=== PATIENT | male | born 1985 | race Two or more races ===

== ENCOUNTER 2018-05-03 16:14 | Emergency (ER) | payer MEDICAID ==
[~2018-05-03] VITALS: Ht 177.8 cm; Wt 254.0 kg
[2018-05-03 18:35] LABS: Basophils # (auto) 0.1 uL; Eosinophils # (auto) 0.1 uL; Eosinophils % (auto) 0.9 % (0.0-7.0); Lymphocytes # (auto) 2.6 uL; Lymphocytes % (auto) 19.9 % (10.0-50.0); Mean Corpuscular Hemoglobin 27.7 pg (28.0-32.0); Mean Corpuscular Hgb Conc. 32.4 g/dL (32.0-36.0); Mean Corpuscular Volume 85.6 fL (80.0-100.0); Monocytes # (auto) 0.8 uL; Monocytes % (auto) 6.5 % (0.0-12.0); Neutrophils # (auto) 9.3 uL; Neutrophils % (auto) 71.7 % (37.0-80.0); Platelet Count (auto) 299 10^3/uL (140-450); Red Blood Cells 4.68 10^6/uL (4.5-5.90); Red Cell Distribution Width 14.7 % (11.8-14.3)
[2018-05-03 18:42] LABS: Alanine Aminotransferase 35 U/L (16-61); Albumin 2.6 g/dL (3.4-5.0); Anion Gap 9 (5-15); Aspartate Aminotransferase 13 U/L (15-37); BUN/Creatinine Ratio 19.7; Blood Urea Nitrogen 25 mg/dL (7-18); Calcium 7.8 mg/dL (8.5-10.1); Carbon Dioxide 21 mmol/L (21-32); Chloride 105 mmol/L (98-107); GFR African American 85 mL/min; GFR Non-African American 70 mL/min; Glucose 260 mg/dL (74-106); Potassium 4.4 mmol/L (3.5-5.1); Sodium 135 mmol/L (136-145)
[2018-05-03 18:44] LABS: Alkaline Phosphatase 94 U/L (45-117); Bilirubin, Total < 0.1 mg/dL (0.2-1.0)
[2018-05-03 18:52] LABS: Urine Bacteria NONE SEEN /hpf (None Seen); Urine Blood Negative /uL (Negative); Urine Specific Gravity 1.016 (1.001-1.035); Urine WBC 2 /hpf (0 - 3)
[2018-05-03 19:11] LABS: Alcohol, Urine < 3.0 mg/dL (0-5); Amphetamine Screen, Urine NEGATIVE (NEGATIVE); Barbiturate Scree,Urine NEGATIVE (NEGATIVE); Benzodiazephine Screen, Urine NEGATIVE (NEGATIVE); Cannabinoid Screen, Urine NEGATIVE (NEGATIVE); Cocaine Screen, Urine NEGATIVE (NEGATIVE); Opiate Scree,Urine NEGATIVE (NEGATIVE); Phencyclidine Screen, Urine NEGATIVE (NEGATIVE)
[2018-05-03 20:03] VITALS: BP 159/90
== END 2018-05-03 20:18 | disposition home or self-care (01) ==
LOC: ER 16:14 → EDBD 16:14 → ER 20:18
DX: I51.7 Cardiomegaly (principal); R42 Dizziness and giddiness; E11.9 Type 2 diabetes mellitus without complications; K21.9 Gastro-esophageal reflux disease without esophagitis
CPT/HCPCS: 36415; 71045; 80053; 80307; 81001; 83880; 84484; 85025; 93005

== ENCOUNTER 2019-05-07 02:19 | Emergency (ER) | payer MEDICAID ==
[~2019-05-07] VITALS: Ht 177.8 cm; Wt 263.1 kg
[2019-05-07 03:28] LABS: Basophils # (auto) 0.1 uL; Eosinophils # (auto) 0.2 uL; Hematocrit 41.4 % (41.0-53.0); Hemoglobin 13.9 g/dL (13.5-17.5); Lymphocytes # (auto) 3.4 uL; Lymphocytes % (auto) 31.3 % (10.0-50.0); Mean Corpuscular Hemoglobin 27.7 pg (28.0-32.0); Mean Corpuscular Hgb Conc. 33.7 g/dL (32.0-36.0); Mean Corpuscular Volume 82.4 fL (80.0-100.0); Monocytes # (auto) 0.9 uL; Monocytes % (auto) 8.4 % (0.0-12.0); Neutrophils # (auto) 6.3 uL; Neutrophils % (auto) 57.3 % (37.0-80.0); Platelet Count (auto) 343 10^3/uL (140-450); Red Blood Cells 5.03 10^6/uL (4.5-5.90); Red Cell Distribution Width 15.4 % (11.8-14.3)
[2019-05-07 03:48] LABS: Calcium 8.7 mg/dL (8.5-10.1); Chloride 101 mmol/L (98-107); Potassium 3.9 mmol/L (3.5-5.1); Salicylate < 1.7 mg/dL (2.8-20.0); Sodium 134 mmol/L (136-145)
[2019-05-07 03:50] LABS: Acetaminophen < 2.0 ug/mL (10-30)
[2019-05-07 03:52] LABS: Alanine Aminotransferase 44 U/L (16-61); Albumin 2.7 g/dL (3.4-5.0); Anion Gap 11 (5-15); Aspartate Aminotransferase 19 U/L (15-37); BUN/Creatinine Ratio 18.2; Blood Urea Nitrogen 20 mg/dL (7-18); Carbon Dioxide 22 mmol/L (21-32); GFR African American 100 mL/min; GFR Non-African American 82 mL/min; Glucose 274 mg/dL (74-106)
[2019-05-07 03:57] LABS: Alkaline Phosphatase 107 U/L (45-117); Bilirubin, Total 0.3 mg/dL (0.2-1.0); Total Protein 7.9 g/dL (6.4-8.2)
[2019-05-07 05:44] VITALS: BP 149/94
== END 2019-05-07 06:12 | disposition home or self-care (01) ==
LOC: EDBD 02:19 → ER 02:22
DX: F44.9 Dissociative and conversion disorder, unspecified (principal); R07.89 Other chest pain; R00.2 Palpitations; E11.9 Type 2 diabetes mellitus without complications; K21.9 Gastro-esophageal reflux disease without esophagitis; I10 Essential (primary) hypertension
CPT/HCPCS: 36415; 71045; 80053; 80320; 80329; 82962; 83735; 83880; 84484; 85025; 93005

== ENCOUNTER 2019-09-23 14:15 | Emergency (ER) | payer MEDICAID ==
[~2019-09-23] VITALS: Ht 177.8 cm; Wt 258.5 kg
[2019-09-23] MEDS ORDERED: MORPHINE SULFATE 4 MG/ML SYR/VIAL IV ONE (14:30)
[2019-09-23] MEDS ORDERED: ONDANSETRON HCL 4 MG/2 ML VIAL IV ONE (14:30)
[2019-09-23 16:28] VITALS: BP 149/72
== END 2019-09-23 17:04 | disposition home or self-care (01) ==
LOC: EDBD 14:15 → ER 14:15
DX: S52.101A Unspecified fracture of upper end of right radius, initial encounter for closed fracture (principal); S52.001A Unspecified fracture of upper end of right ulna, initial encounter for closed fracture; S20.211A Contusion of right front wall of thorax, initial encounter; I11.0 Hypertensive heart disease with heart failure; I50.9 Heart failure, unspecified; E11.9 Type 2 diabetes mellitus without complications; K21.9 Gastro-esophageal reflux disease without esophagitis; V86.59XA Driver of other special all-terrain or other off-road motor vehicle injured in nontraffic accident, initial encounter; Y93.89 Activity, other specified; Y92.89 Other specified places as the place of occurrence of the external cause; Y99.8 Other external cause status
CPT/HCPCS: 71101; 73090; 96374; 96375; 99284; J2270; J2405